=== PATIENT | female | born 1975 | race Caucasian/White ===

== ENCOUNTER 2018-03-16 12:51 | Emergency (ER) | payer OTHER ==
[2018-03-16 12:56] VITALS: BP 116/60; PULSE 83; TEMP 97.9; BMI 23.0
[2018-03-16 14:12] LABS: BASO % 0.4 % (0-2.0); EOS % 0.2 % (0-4.5); HEMOGLOBIN 14.2 GM/dL (10.7-15.3); LYMPH % 12.2 % (8-40); MCH 30.7 pg (25.7-33.7); MEAN CELL VOLUME 93.1 fl (80-96); MEAN PLT VOLUME 9.2 fl (7.5-11.1); MONO % 3.3 % (3.8-10.2); NEUT % 83.9 % (42.8-82.8); PLATELET COUNT 220 K/MM3 (134-434); RBC 4.61 M/mm3 (3.60-5.2); WHITE BLOOD COUNT 6.2 K/mm3 (4.0-10.0)
[2018-03-16 14:24] LABS: URINE APPEARANCE CLEAR; URINE BILIRUBIN NEGATIVE (<2.0 mg/dL); URINE COLOR STRAW; URINE GLUCOSE (UA) NEGATIVE (NEGATIVE); URINE KETONE TRACE (NEGATIVE); URINE LEUK ESTERASE NEGATIVE (NEGATIVE); URINE NITRITE NEGATIVE (NEGATIVE); URINE PROTEIN NEGATIVE (NEGATIVE); URINE UROBILINOGEN NEGATIVE mg/dL (0.2-1.0)
[2018-03-16 14:30] LABS: COCAINE, UR NEGATIVE ng/ml (CUTOFF=300); METHADONE, UR NEGATIVE ng/ml (CUTOFF=300); OPIATES, URI NEGATIVE ng/ml (CUTOFF=300); PHENCYCLIDINE,URINE NEGATIVE ng/ml (CUTOFF=25); URINE AMPHETAMINES NEGATIVE ng/ml (CUTOFF=500); URINE BARBITURATES NEGATIVE ng/ml (CUTOFF=200); URINE BENZODIAZEPINES NEGATIVE ng/ml (CUTOFF=200)
--- NOTE | 2018-03-16 14:33 | PDOC ---
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 Patient states went her PCP who did lab work gave her the influenza vaccine but since. Patient states symptoms continue to worsen today she decided come to the ER for further evaluation. Patient denies visual changes, nausea, weakness, chest pain, shortness of breath , lower extremity edema, recent head injury or recent change in weight. Patient denies drug use or history of anxiety. Timing/Duration: 24 hours Severity: mild Associated Symptoms: reports: other Past History - Travel Traveled outside of the country in the last 30 days: No Close contact w/someone who was outside of country & ill: No - Past Medical History Allergies/Adverse Reactions: Allergies Allergy/AdvReac Type Severity Reaction Status Date / Time Penicillins Allergy Verified 03/16/18 12:57 Home Medications: Ambulatory Orders NK [No Known Home Medication] 03/16/18 COPD: No Thyroid Disease: Yes (destiny's) - Suicide/Smoking/Psychosocial Hx Smoking History: Never smoked Patient Lives Alone: No Lives with/in: spouse/SO Review of Systems - Review of Systems Able to Perform ROS?: Yes Constitutional: No: Symptoms Reported HEENTM: No: Symptoms Reported Respiratory: No: Symptoms reported Cardiac (ROS): Yes: Lightheadedness ABD/GI: No: Symptoms Reported : No: Symptoms Reported Musculoskeletal: No: Symptoms Reported Integumentary: No: Symptoms Reported Neurological: Yes: Dizziness. No: Headache Endocrine: No: Symptoms Reported *Physical Exam - Vital Signs Last Vital Signs Temp Pulse Resp BP Pulse Ox 97.9 F 83 16 116/60 100 03/16/18 12:54 03/16/18 12:54 03/16/18 12:54 03/16/18 12:54 03/16/18 12:54 - Physical Exam General Appearance: Yes: Nourished, Appropriately Dressed. No: Apparent Distress HEENT: positive: EOMI, RINA, TMs Normal. negative: Pale Conjunctivae Neck: positive: Normal Thyroid, Supple Respiratory/Chest: positive: Lungs Clear, Normal Breath Sounds. negative: Respiratory Distress, Accessory Muscle Use Cardiovascular: positive: Regular Rhythm, Regular Rate. negative: Murmur Gastrointestinal/Abdominal: positive: Soft. negative: Tenderness Integumentary: positive: Normal Color, Warm, Moist Neurologic: positive: Motor Strength 5/5. negative: Normal Mood/Affect (anxious ) Heart Score/ECG Review - ECG Intrepretation Rhythm: Regular Rhythm (rate 78, nsr, intervals are regular) ED Treatment Course - LABORATORY CBC & Chemistry Diagram: 03/16/18 14:02 - RADIOLOGY Radiology Studies Ordered: Category Date Time Status HEAD CT WITHOUT CONTRAST [CT] Stat CT Scan 03/16/18 13:56 Ordered CHEST X-RAY PORTABLE* [RAD] Stat Radiology 03/16/18 13:57 Ordered Medical Decision Making - Medical Decision Making 03/16/18 14:23 Chief complaint: Dizziness lightheadedness increased anxiety since yesterday Exam: No acute findings, noted to be pacing and very anxious Plan: Electrolyte imbalance, thyroid disorder, anxiety, labs, urine, EKG ordered. Patient requesting head CT. 03/16/18 15:06 Patient requesting to leave AGAINST MEDICAL ADVICE and she states [place] at home and unable to keep still. Patient was explained that she has a sign out AGAINST MEDICAL ADVICE and she is not waiting for labs prior to discharge. Patient understands by leaving she is making that decision to leave the emergency room prior to receiving results. 03/16/18 15:28 Went to look for patient who had left AGAINST MEDICAL ADVICE and unable to be located within her room in the ER hallway, bathrooms or waiting area. Laboratory Tests 03/16/18 03/16/18 03/16/18 14:02 14:02 14:02 WBC 6.2 Hgb 14.2 Hct 43.0 MCV 93.1 Neutrophils % 83.9 H Lymphocytes % 12.2 Monocytes % 3.3 L Creatine Kinase 64 Troponin I 0.05 TSH 1.86 Ur Specific [place] 1.008 L Urine Ketones Trace H Urine HCG, Qual Negative U Marijuana (THC) Screen 03/16/18 14:06 WBC Hgb Hct MCV Neutrophils % Lymphocytes % Monocytes % Creatine Kinase Troponin I TSH Ur Specific [place] Urine Ketones Urine HCG, Qual U Marijuana (THC) Screen Negative *DC/Admit/Observation/Transfer Diagnosis at time of Disposition: Dizziness - Discharge Dispostion Disposition: AGAINST MEDICAL ADVICE Condition at time of disposition: Unchanged/Unknown - Referrals - Patient Instructions Printed Discharge Instructions: DI for Dizziness-Nonvertigo Additional Instructions: Understand by leaving AGAINST MEDICAL ADVICE that you are choosing [facility] for your medical care. - Post Discharge Activity
[2018-03-16 15:09] LABS: HCG,QUALITATIVE URINE NEGATIVE
--- NOTE | 2018-03-19 23:47 | EKG ---
Test Reason : Blood Pressure : / mmHG Vent. Rate : 071 BPM Atrial Rate : 071 BPM P-R Int : 138 ms QRS Dur : 088 ms QT Int : 388 ms P-R-T Axes : 048 074 052 degrees QTc Int : 421 ms NORMAL SINUS RHYTHM NORMAL ECG NO PREVIOUS ECGS AVAILABLE Confirmed by ANA MOJICA MD ([id number]) on 03/19/2018 11:47:21 PM Referred By: Confirmed By:ANA MOJICA MD
== END 2018-03-16 14:54 | disposition left against medical advice (07) ==
LOC: JER 12:51
DX: R42 Dizziness and giddiness (principal)
CPT/HCPCS: 36415; 71045-TC-FY; 80307; 81003; 82550; 84443; 84484; 84703; 85025; 93005; 93010; 99282-25

== ENCOUNTER 2018-03-19 19:36 | Emergency (ER) | payer OTHER ==
[2018-03-19 19:46] VITALS: BP 135/80; PULSE 84; TEMP 98.1; BMI 23.0
--- NOTE | 2018-03-19 19:49 | PDOC ---
History of Present Illness - General History Source: Patient Exam Limitations: No Limitations - History of Present Illness Initial Comments: 03/19/18 20:18 The patient is a 42 year old female, with a significant past medical history of Destiny's disease, who presents to the emergency department with, 5 days of lightheadedness and nausea. As per patient, she was seen by her PCP , [facility] Monday (where she left AMA), and her PCP today, and [facility] (where she eloped after [facility]ME) once again today for similar symptoms. Patent notes that her PCP advised her to report back to the ER for a CT of her head to rule out a tumor. Upon arrival, the patient endorses significant nausea and anxiety. She denies feeling the room spinning. She denies any alleviating or worsening factors such as her lightheadedness worsening when getting up fast. She denies any visionary changes or change in strength/sensation. She denies recent fevers , chills, or headache. She denies recent nausea, vomit, diarrhea or constipation. She denies recent dysuria, frequency, urgency or hematuria. She denies recent chest pain or shortness of breath. Allergies: Penicillins. Past surgical history: None reported. Social history: Nonsmoker. Denies EtOH use and recreational drug use. Primary Care Physician: Dr. Lei <Fahad Paredes - Last Filed: 03/19/18 20:36> <Tamika Mckeon - Last Filed: 03/20/18 05:36> - General Chief Complaint: Lightheaded Stated Complaint: LIGHT HEADED, DIZZY, NAUSEA Time Seen by Provider: 03/19/18 19:41 Past History <Fahad Paredes - Last Filed: 03/19/18 20:36> - Past Medical History COPD: No Thyroid Disease: Yes (destiny's) - Suicide/Smoking/Psychosocial Hx Smoking History: Never smoked Hx Alcohol Use: No Drug/Substance Use Hx: No Substance Use Type: None <Tamika Mckeon - Last Filed: 03/20/18 05:36> - Past Medical History Allergies/Adverse Reactions: Allergies Allergy/AdvReac Type Severity Reaction Status Date / Time Penicillins Allergy Verified 03/19/18 16:32 Home Medications: Ambulatory Orders Ondansetron [Zofran Odt -] 4 mg SL TID PRN #10 od.tablet 03/19/18 Review of Systems - Review of Systems Able to Perform ROS?: Yes Comments:: 03/19/18 20:19 CONSTITUTIONAL: Absent: fever, no chills, no fatigue EYES: Absent: visual changes ENT: Absent: ear pain, no sore throat CARDIOVASCULAR: Absent: chest pain, no palpitations RESPIRATORY: Absent: cough, no SOB GI: Present: Nausea Absent: abdominal pain, no vomiting, no constipation, no diarrhea GENITOURINARY: Absent: dysuria, no frequency, no hematuria MUSKULOSKELETAL: Absent: back pain, no arthralgia, no myalgia SKIN: Absent: rash NEURO: Present: Lightheaded. Absent: headache All Other Systems: Reviewed and Negative <Fahad Paredes - Last Filed: 03/19/18 20:36> *Physical Exam - Vital Signs Last Vital Signs Temp Pulse Resp BP Pulse Ox 98.1 F 84 16 135/80 100 03/19/18 19:39 03/19/18 19:39 03/19/18 19:39 03/19/18 19:39 03/19/18 19:39 - Physical Exam Comments: 03/19/18 20:19 GENERAL: The patient is awake, alert, and fully oriented, in no acute distress. HEAD: Normal with no signs of trauma. EYES: Pupils equal, round and reactive to light, extraocular movements intact, sclera anicteric, conjunctiva clear with no pallor. ENT: Ears normal, nares patent, oropharynx clear without exudates. Moist mucous membranes. NECK: Normal range of motion, supple without lymphadenopathy, JVD, or masses. LUNGS: Breath sounds equal, clear to auscultation bilaterally. No wheeze/ crackles. HEART: Regular rate and rhythm, normal S1 and S2 without murmur or rub. ABDOMEN: Soft/nontender/nondistended. BS wnl. No guarding or rebound. No palpable masses. No hepatosplenomegaly. EXTREMITIES: Normal range of motion, no edema. No clubbing or cyanosis. No cords, erythema, or tenderness. NEUROLOGICAL: Mental status: The patient is alert and oriented x3. Cranial nerves: Cranial nerves II through XII are intact Motor: The upper extremities are 5 over 5 in all muscle groups. The lower extremities are 5 over 5 in all muscle groups. No pronator drift. Sensation: Sensation is intact to light touch throughout. Cerebellar: Frhxqk-xybauy-zsph is normal in both upper extremities. Heel-knee- campos is normal in both lower extremities. Reflexes: 2+ and symmetric in the upper and lower extremities. Gait: Normal. Heel and toe walking are normal. Tandem gait is normal. PSYCH: Normal mood, normal affect. SKIN: Warm, Dry, normal turgor, no rashes or lesions noted. <Fahad Paredes - Last Filed: 03/19/18 20:36> - Vital Signs Last Vital Signs Temp Pulse Resp BP Pulse Ox 98.1 F 84 16 135/80 100 03/19/18 19:39 03/19/18 19:39 03/19/18 19:39 03/19/18 19:39 03/19/18 19:39 <Tamika Mckeon - Last Filed: 03/20/18 05:36> ED Treatment Course - LABORATORY CBC & Chemistry Diagram: 03/19/18 20:40 03/19/18 20:18 <Tamika Mckeon - Last Filed: 03/20/18 05:36> Medical Decision Making - Medical Decision Making Documentation has been prepared under my direction and personally reviewed by me in its entirety. I attest that this documented accurately reflects all work, treatment, procedures and medical decision making performed by me. As noted above, this 42-year-old woman with history of Destiny's thyroiditis ( currently stable) but no other medical history presents with several day history of lightheadedness and intermittent nausea. She has been seen by her PMD and in the ER at [facility] twice as noted in the main note. Today, she has mild lightheadedness but is more bothered by her nausea. She has no vomiting or diarrhea; she also denies abdominal pain. Exam as noted. Patient was particularly anxious about possibility of acute intracranial pathology. Although she has no focal deficits on exam, increased intracranial pressure could be manifested in this lightheadedness with nausea so noncontrast head CT was performed: No evidence of acute intracranial pathology. Laboratory evaluation (CBC/comprehensive chemistry profile) otherwise negative except for mild hypokalemia of unclear etiology (3.2). Patient was given 40 mEq of Alexia Dur. Patient was discharged with instructions to use Zofran ODT 4 mg up to 3 times a day as needed for any persistent nausea. She should eat potassium rich diet and drink plenty of fluids and rest. Follow-up with her PMD should be within the next 5-7 days. She should return to the emergency room if she has recurrent severe symptoms. <Tamika Mckeon - Last Filed: 03/20/18 05:36> *DC/Admit/Observation/Transfer - Attestations Scribe Attestion: 03/19/18 20:19 Documentation prepared by Fahad Paredes, acting as biomedical analytical scientist for Tamika Mckeon MD. <Fahad Paredes - Last Filed: 03/19/18 20:36> <Tamika Mckeon - Last Filed: 03/20/18 05:36> Diagnosis at time of Disposition: Nausea - Discharge Dispostion Disposition: HOME Condition at time of disposition: Stable - Prescriptions Prescriptions: Ondansetron [Zofran Odt -] 4 mg SL TID PRN #10 od.tablet PRN Reason: Nausea - Referrals Referrals: Anali Lei MD [Primary Care Provider] - - Patient Instructions Printed Discharge Instructions: DI for Nausea -- Adult, High-Potassium Diet Additional Instructions: Zofran ODT 4 mg up to 3 times a day as needed for nausea light diet as tolerated Return to ER if you have Persistent vomiting or severe lightheadedness Follow-up with your doctor within the next 48 hours - Post Discharge Activity
[2018-03-19] MEDS ORDERED: ONDANSETRON 4 MG/2 ML VIAL IVPUSH ONE (20:19)
[2018-03-19] MEDS ORDERED: ONDANSETRON 4 MG/2 ML VIAL ONE (20:27)
[2018-03-19 20:55] LABS: BASO % 0.6 % (0-2.0); EOS % 0.6 % (0-4.5); HEMATOCRIT 40.1 % (32.4-45.2); HEMOGLOBIN 13.6 GM/dl (10.7-15.3); MCH 32.2 pg (25.7-33.7); MCHC 33.9 g/dl (32.0-36.0); MEAN CELL VOLUME 94.8 fl (80-96); MEAN PLT VOLUME 8.9 fl (7.5-11.1); NEUT % 68.8 % (42.8-82.8); PLATELET COUNT 249 K/MM3 (134-434); RBC 4.23 M/mm3 (3.60-5.2); WHITE BLOOD COUNT 8.4 K/mm3 (4.0-10.8)
[2018-03-19 21:08] LABS: ALBUMIN 4.2 g/dl (3.5-5.0); ALK PHOS 49 U/L (32-92); ANION GAP 8 MMOL/L (8-16); BLOOD UREA NITROGEN 8 mg/dl (7-18); CALCIUM 9.2 mg/dl (8.4-10.2); CHLORIDE 102 mmol/L (98-107); CO2 28 mmol/L (22-28); CREATININE 0.6 mg/dl (0.6-1.3); GLUCOSE,RANDOM 101 mg/dl (74-106); POTASSIUM 3.2 mmol/L (3.5-5.1); SGOT/AST 16 U/L (10-42); SGPT/ALT 13 U/L (10-40); SODIUM 138 mmol/L (136-145); TOT PROT 7.3 g/dl (6.4-8.3)
[2018-03-19] MEDS ORDERED: POTASSIUM CHLORIDE TABS 20 MEQ TABLET.ER (FP) PO ONE ×2 (21:47→21:50)
== END 2018-03-19 21:58 | disposition home or self-care (01) ==
LOC: FER 19:36
PROC: 3E033GC Introduction of Other Therapeutic Substance into Peripheral Vein, Percutaneous Approach (ICD-10-PCS; principal; 2018-03-19)
DX: R11.0 Nausea (principal); E06.3 Autoimmune thyroiditis
CPT/HCPCS: 36415; 70450-TC; 80053; 81003; 81015; 84703; 85025; 96374; 99282-25

== ENCOUNTER → 2018-03-19 | Emergency (ER) | payer OTHER ==
[~2018-03-19] MED LIST: ACETAMINOPHEN 325 MG TABLET (FP) ONE
--- NOTE | 2018-03-19 16:32 | PDOC ---
Rapid Medical Evaluation Chief Complaint: Lightheaded Time Seen by Provider: 03/19/18 16:31 Medical Evaluation: Allergies Allergy/AdvReac Type Severity Reaction Status Date / Time Penicillins Allergy Verified 03/16/18 12:57 03/19/18 16:37 42 year old c/o dizzines and nausea seen in the ER for same complaint. reports no improvement in symptoms PE: patient alert ox3. A: dizziness P: ua urine patient to the ER for further management of care. Discharge Disposition - Diagnosis Dizziness - Referrals - Patient Instructions - Post Discharge Activity
[2018-03-19 16:38] VITALS: BP 119/76; PULSE 87; TEMP 97.4; BMI 23.0
[2018-03-19 18:41] LABS: HCG,QUALITATIVE URINE NEGATIVE
[2018-03-19 18:45] LABS: URINE APPEARANCE CLEAR; URINE BILIRUBIN NEGATIVE (<2.0 mg/dL); URINE COLOR STRAW; URINE GLUCOSE (UA) NEGATIVE (NEGATIVE); URINE KETONE NEGATIVE (NEGATIVE); URINE LEUK ESTERASE TRACE (NEGATIVE); URINE NITRITE NEGATIVE (NEGATIVE); URINE PROTEIN NEGATIVE (NEGATIVE); URINE UROBILINOGEN NEGATIVE mg/dL (0.2-1.0)
[2018-03-19 18:53] LABS: EPI CELLS RARE /HPF (FEW); URINE BACTERIA RARE /hpf (NONE SEEN); URINE MUCUS RARE
== END | disposition left against medical advice (07) ==
LOC: JER 16:30
DX: R42 Dizziness and giddiness (principal)
CPT/HCPCS: 81003; 81015; 84703; 99282-25